=== PATIENT | male | born 1960 | race Caucasian/White ===

== ENCOUNTER 2017-02-07 15:22 | Inpatient (IN) | payer BC ==
[2017-02-07] MEDS ORDERED: Aspirin Low Dose CHEW TAB* 81 MG PO ONE (15:40)
[2017-02-07] MEDS ORDERED: Ondansetron INJ* 2 MG/ML VIAL IV ONE (16:02)
[2017-02-07] MEDS ORDERED: Metoprolol Tartrate IV* 1 MG/ML 5 ML VIAL IV ONE (16:02)
[2017-02-07] MEDS ORDERED: Morphine INJ* 4 MG/ML 1 ML SYRINGE IV ONE (16:02)
[2017-02-07] MEDS ORDERED: Iodixanol* (CONTRAST) 320 MG/ML 100 ML SDV IV ONE (16:33)
[2017-02-07 16:34] LABS: Hematocrit 45 % (42-52); Hemoglobin 15.3 g/dl (14.0-18.0); Mean Corpuscular HGB Conc 34 g/dl (31-36); Mean Corpuscular Hemoglobin 31 pg (27-31); Mean Corpuscular Volume 92 fL (80-94); Mean Platelet Volume 8 um3 (7.4-10.4); Red Blood Count 4.87 10^6/ul (4.0-5.4); Red Cell Distribution Width 13 % (10.5-15); White Blood Count 9.9 10^3/ul (3.5-10.8)
[2017-02-07 16:52] LABS: ALT 37 U/L (7-52); Albumin 4.7 g/dL (3.2-5.2); Alkaline Phosphatase 36 U/L (34-104); BUN/Creatinine Ratio 12.7 (8-20); Blood Urea Nitrogen 10 mg/dL (6-24); CO2 Carbon Dioxide 26 mmol/L (22-32); Calcium 9.3 mg/dL (8.6-10.3); Chloride 100 mmol/L (101-111); EGFR Non-African American 101.1 (>60); Globulin 2.9 g/dL (2-4); Glucose 113 mg/dL (70-100); Sodium 135 mmol/L (133-145); Total Protein 7.6 g/dL (6.4-8.9)
--- NOTE | 2017-02-07 17:03 | RAD ---
Indication: Low back pain, aneurysm and dissection. Contrast: Administered 100.0 ml of VISAPAQUE 320 mgi/ml CTA of the chest, abdomen and pelvis was performed after IV contrast administration. Coronal and sagittal reconstructed images were obtained. There is no evidence of aortic dissection with no evidence of intimal flap. No evidence of thoracic aortic aneurysm is noted. The abdominal aorta demonstrates no evidence of aneurysmal dilatation or aortic dissection. The common iliac artery and external iliac arteries demonstrates no evidence of dissection. There is no evidence of filling defect to suggest pulmonary embolus. There is no mediastinal or hilar adenopathy noted. Inferior thyroid lobes are grossly unremarkable. The trachea and major bronchi appear patent. The lung maguire demonstrate some atelectasis in the right middle lobe. No other focal lesions or alveolar consolidation is noted. The liver is normal in size. It is diffusely decreased in density consistent with hepatic steatosis. There is a focal hypervascular mass in the right lobe of liver measuring approximately 6 mm. This may represent a cyst or hemangioma. Correlation with MRI may be helpful if clinically warranted. No other focal lesions are identified. The gallbladder demonstrates no calcified gallstones. No pericholecystic fluid or wall thickening is noted. The spleen is normal in size. No adrenal lesions are noted. The kidneys demonstrate symmetric nephrograms without focal lesions. No retroperitoneal lymphadenopathy is noted. No dilated loops of bowel are noted. The colon is filled with stool. CT of the pelvis demonstrates distended urinary bladder. No hernias are noted. Prostate and seminal vesicles are unremarkable. The bony structures demonstrates multilevel degenerative disc disease of the lumbar spine. IMPRESSION: THERE IS NO EVIDENCE OF THORACIC AORTIC DISSECTION OR ABDOMINAL AORTIC DISSECTION. NO EVIDENCE OF ANEURYSM OF THE THORACIC OR ABDOMINAL AORTA IS NOTED. MULTILEVEL DEGENERATIVE DISC DISEASE OF THE LUMBAR SPINE IS NOTED. HYPERVASCULAR LESION IN THE RIGHT LOBE OF LIVER MEASURING 5 MM MAY REPRESENT A FLASH FILLING HEMANGIOMA. IF CLINICALLY WARRANTED FOLLOW-UP EXAM WITH MRI OR ULTRASOUND COULD BE PERFORMED. Findings discussed with Dr. Bello at 1700 hours.
--- NOTE | 2017-02-07 18:36 | RAD ---
Indication: Slurred speech, hypertension. CT of the brain was performed without IV contrast. Ventricular structures are midline. No midline shift is noted. The extra-axial spaces are unremarkable. There is no evidence of intracranial mass or hemorrhage. No other high or low density lesions are identified. Mastoid air cells and paranasal sinuses are grossly unremarkable. IMPRESSION: No intracranial mass or hemorrhage is noted.
[2017-02-07 19:01] LABS: Alcohol < 10 mg/dL (<10)
[2017-02-07] MEDS ORDERED: Acetaminophen TAB* 325 MG PO PRN (21:55)
[2017-02-07] MEDS ORDERED: Metoprolol Tartrate IV* 1 MG/ML 5 ML VIAL IV PRN (21:55)
[2017-02-07] MEDS: Heparin VIAL(*) 5000 UNITS/ML VIAL (FIVE THOUSAND) SUBCUT SCH (22:54)
[2017-02-08] MEDS ORDERED: Ondansetron INJ* 2 MG/ML VIAL ONE (00:26)
[2017-02-08] MEDS: Ondansetron INJ* 2 MG/ML VIAL IV PRN ×4 (00:30→16:45)
--- NOTE | 2017-02-08 00:59 | HP ---
HISTORY AND PHYSICAL: DATE OF ADMISSION: 02/07/17 PRIMARY CARE PHYSICIAN: Dr. Galen Concepcion. ATTENDING PHYSICIAN: Dr. Kash Echols* (dictated by Sophie Alexis NP). CHIEF COMPLAINT: High blood pressure, slow slurred speech and generally not feeling well. HISTORY OF PRESENT ILLNESS: Mr. Ruano is a 56-year-old male with past medical history significant for ulcerative colitis, hyperlipidemia and cyclic vomiting who presented to the emergency room today after generally not feeling well and at work checking his blood pressures and found that he was hypertensive with blood pressures systolically in the 180s and diastolic in the 100s. The patient states that he woke this morning with lower back pain. This is not uncommon for him. He regularly follows with a chiropractor. He reports moving a bunch of brush yesterday and feels that this may have contributed to his back discomfort. 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 The patient denies any fever, chills, chest pain, and shortness of breath. The patient denies any weakness, facial drooping, or confusion. According to the patient's , he had slightly slow and slurred speech. He presented to the emergency room for further evaluation of his symptoms. While in the emergency room, the patient received aspirin 324 mg. He also received IV morphine and Zofran. The patient received 5 mg one time dose of IV metoprolol, which improved his blood pressure from 190/110 to 136/86. The patient also underwent a head CT showing no intracranial mass or hemorrhage. The patient also had an abdomen, pelvis chest CTA showing no evidence for thoracic aortic dissection or abdominal aortic dissection. The patient was noted to have multilevel degenerative disk disease of his lumbar spine. The patient had an EKG showing sinus rhythm at a rate of 78, similar to previous EKG from 03/10/04. The patient had labs. They were fairly unremarkable. He had a troponin of 0.00. Hospitalists were asked to evaluate this patient for admission. PAST MEDICAL HISTORY: 1. Ulcerative colitis. 2. Hyperlipidemia. 3. Cyclic vomiting syndrome. PAST SURGICAL HISTORY: None. HOME MEDICATIONS: Include: 1. Balsalazide 1500 mg oral twice daily. 2. Amitriptyline 25 mg oral daily at bedtime. 3. Simvastatin 40 mg oral daily at bedtime. 4. Fish oil 1000 mg oral twice daily. 5. Co-Q10 200 mg oral daily. 6. Probiotic 1 tablet oral daily. ALLERGIES: No known drug allergies. FAMILY HISTORY: The patient's father passed at age 78 from heart disease. He also had a history of heart failure. The patient denies any family history of diabetes mellitus. The patient's mother had a history of breast cancer. The patient has a brother with a history of brain aneurysm. The patient has another brother who passed at age 70 from complications of a cerebrovascular accident. SOCIAL HISTORY: The patient denies tobacco use. He drinks 6 beers daily. The patient reports occasional marijuana use. The patient works at a local [employer]. He lives with his , Melissa Stephenson, who will be his surrogate decision maker in the event he is unable to make decisions for himself. REVIEW OF SYSTEMS: I performed a 14-point review of systems. All the pertinent positives and negatives are mentioned in the history of present illness. The remaining review of systems are negative. PHYSICAL EXAMINATION GENERAL APPEARANCE: The patient is alert, pleasant, appears to be in no acute distress. VITAL SIGNS: Temperature 99.2, heart rate 83, respiratory rate 15, O2 sat 96% on room air, blood pressure 137/90. HEENT: Normocephalic, atraumatic. Pupils are equal and reactive to light. Extraocular movements are intact. RESPIRATORY: There is no accessory muscle use and the lungs are clear to auscultation bilateral. CARDIOVASCULAR: Regular rate and rhythm. S1, S2 present. There are no murmurs , rubs, or gallops heard. ABDOMEN: Soft, nontender, nondistended. There are bowel sounds present x4. EXTREMITIES: There is no lower extremity edema. DP and PT pulses are 2+ and symmetric. MUSCULOSKELETAL: There is no clubbing or cyanosis noted. The patient exhibits good strength in all extremities. The patient's hand performance architect are equal. NEUROLOGIC: The patient is alert and oriented x4. Cranial nerves II through XII are grossly intact. The patient's face is symmetrical. Hand performance architect are equal. He is able to move all extremities. PSYCHOLOGICAL: The patient is calm and cooperative. SKIN: There are no rashes or abnormalities seen. DIAGNOSTIC STUDIES/LABORATORY DATA: Sodium 135, potassium 4.0, chloride 100, CO2 26, BUN 10, creatinine 0.79, glucose 113. White blood cell count 9.9, hemoglobin 15.3, hematocrit 45, platelet count 253, troponin 0.00. EKG shows sinus rhythm with a rate of 78. There are no acute signs of ischemia. This EKG is similar to previous EKG from 03/10/04. Head CT from today. Radiologist impression: No intracranial mass or hemorrhage. Chest, abdomen, pelvis CTA from today. Radiologist impression: There is no evidence of thoracic aortic dissection or abdominal aortic dissection. No evidence of aneurysm of the thoracic or abdominal aorta is noted. Multilevel degenerative disk disease of the lumbar spine is noted. Hypervascular lesion in the right lobe of the liver measuring 5 mm may represent a flash filling hemangioma. If clinically warranted, followup exam with MRI or ultrasound could be performed. IMPRESSION: Mr. Ruano is a 56-year-old male with past medical history significant for ulcerative colitis and hyperlipidemia who presents to the emergency room today with a hypertensive episode with associated slurred and slowed speech. He will be admitted as an observation for hypertensive urgency. ASSESSMENT: 1. Slow slurred speech. I suspect this is related to hypertensive urgency as the patient presented hypertensive with systolic blood pressure in the 190s. This resolved after he received a dose of IV metoprolol. We will monitor the patient on telemetry, get neuro checks and check fasting labs in the morning. Due to the patient's family history of brain aneurysm and cerebrovascular accident, we will get an head and neck CTA in the morning. 2. Hypertension. We will place the patient on as needed metoprolol overnight for systolic blood pressures greater than 180 or diastolic blood pressures greater than 110. We will start the patient on metoprolol 25 mg oral in the morning. 3. History of depression. The patient will be continued on his home amitriptyline. 4. Ulcerative colitis. The patient will be continued on his home balsalazide. 5. Hyperlipidemia. The patient will be continued on his statin. We will check fasting lipids in the morning and adjust accordingly. 6. Low back pain. We will use Tylenol, this is what the patient uses at home. 7. Fluids, electrolytes, nutrition. The patient will be on a heart healthy diet. 8. Code status. Full code. 9. DVT prophylaxis. The patient is at moderate risk, will be placed on subcu heparin. 10. Disposition. Observation. TIME SPENT: Time for this admission was 60 minutes, 35 minutes were spent with the patient discussing medications, past medical history and the events leading up to his arrival today and performing a physical examination. The case has been reviewed with the attending, Dr. Echols, who agrees with the plan of care. Reviewed by SOPHIE SHARMA, RAMON-C 02/11/17 1737 CC: Dr. Galen Concepcion* [id number]/[facility] #: [id number] OLMAN
[2017-02-08] MEDS ORDERED: Morphine INJ* 2 MG/ML 1 ML SYRINGE ONE (01:00)
[2017-02-08] MEDS ORDERED: Morphine INJ* 2 MG/ML 1 ML SYRINGE IV ONE (01:00)
[2017-02-08] MEDS ORDERED: LORazepam INJ* 2 MG/ML 1 ML VIAL ONE (01:22)
[2017-02-08] MEDS ORDERED: LORazepam INJ* 2 MG/ML 1 ML VIAL IV PUSH ONE (02:00)
[2017-02-08 05:29] LABS: HDL Cholesterol 49.6 mg/dL
[2017-02-08] MEDS: Heparin VIAL(*) 5000 UNITS/ML VIAL (FIVE THOUSAND) SUBCUT SCH ×3 (06:02→21:03)
[2017-02-08] MEDS ORDERED: PROCHLORPERAZINE INJ 5 MG/ML 2 ML VIAL ONE (06:31)
[2017-02-08] MEDS ORDERED: PROCHLORPERAZINE INJ 5 MG/ML 2 ML VIAL IV PRN (06:33)
[2017-02-08] MEDS ORDERED: Iohexol 350* (CONTRAST) 500 ML MDV IV ONE (07:24)
[2017-02-08] MEDS ORDERED: Metoprolol Tartrate TAB* 25 MG PO SCH (09:00)
[2017-02-08] MEDS: Balsalazide (NF) 750 MG CAP PO SCH ×2 (09:48→21:03)
[2017-02-08] MEDS ORDERED: LORazepam INJ* 2 MG/ML 1 ML VIAL IV PUSH PRN (10:02)
--- NOTE | 2017-02-08 10:08 | PN ---
Subjective Date of Service: 02/08/17 Interval History: Pt is feeling poorly. He states that overnight he had frequent retching/ vomiting. He has also had abdominal pain which is not uncommon for him when he gets into a vomiting cycle. Objective Active Medications: Acetaminophen (Tylenol Tab*) 650 mg PO Q4H PRN PRN Reason: PAIN Amitriptyline HCl (Elavil Tab*) 25 mg PO BEDTIME [facility] Amlodipine Besylate (Norvasc Tab*) 5 mg PO DAILY [facility] Atorvastatin Calcium (Lipitor*) 20 mg PO BEDTIME [facility] Balsalazide (Balsalazide (Nf)) 1,500 mg PO BID [facility] Last Admin: 02/08/17 09:48 Dose: Not Given Heparin Sodium (Porcine) (Heparin Vial(*)) 5,000 units SUBCUT Q8HR [facility] Last Admin: 02/08/17 06:02 Dose: Not Given Metoprolol Tartrate (Lopressor Iv*) 5 mg IV Q6H PRN PRN Reason: BLOOD PRESSURE Last Admin: 02/08/17 06:05 Dose: 5 mg Ondansetron HCl (Zofran Inj*) 4 mg IV Q4H PRN PRN Reason: NAUSEA/VOMITING Last Admin: 02/08/17 08:32 Dose: 4 mg Prochlorperazine Edisylate (Compazine Inj*) 10 mg IV Q6H PRN PRN Reason: NAUSEA/VOMITING Last Admin: 02/08/17 06:34 Dose: 10 mg Vital Signs 02/07/17 02/07/17 02/07/17 21:30 21:46 22:00 Pulse Rate 90 87 Respiratory 16 11 15 Rate Blood Pressure 152/99 149/84 (mmHg) O2 Sat by Pulse 96 96 Oximetry 02/07/17 02/07/17 02/07/17 22:25 22:30 22:39 Pulse Rate 87 86 89 Respiratory 13 13 13 Rate Blood Pressure 153/90 (mmHg) O2 Sat by Pulse 97 96 96 Oximetry 02/07/17 02/07/17 02/07/17 22:48 23:00 23:30 Pulse Rate 83 85 Respiratory 12 19 Rate Blood Pressure 161/96 (mmHg) O2 Sat by Pulse 94 94 Oximetry 02/08/17 02/08/17 02/08/17 00:00 00:29 01:00 Pulse Rate 84 87 91 Respiratory 14 16 29 Rate Blood Pressure 154/98 (mmHg) O2 Sat by Pulse 95 93 99 Oximetry 02/08/17 02/08/17 02/08/17 01:02 01:04 01:25 Pulse Rate Respiratory 21 17 17 Rate Blood Pressure (mmHg) O2 Sat by Pulse Oximetry 02/08/17 02/08/17 02/08/17 01:30 02:00 02:30 Pulse Rate 84 79 77 Respiratory 17 15 14 Rate Blood Pressure (mmHg) O2 Sat by Pulse 96 95 94 Oximetry 02/08/17 02/08/17 02/08/17 03:00 03:30 04:00 Pulse Rate 83 88 88 Respiratory 12 14 21 Rate Blood Pressure 166/91 (mmHg) O2 Sat by Pulse 96 95 92 Oximetry 02/08/17 02/08/17 02/08/17 04:30 05:00 05:30 Pulse Rate 95 93 94 Respiratory 14 12 20 Rate Blood Pressure 160/102 (mmHg) O2 Sat by Pulse 95 95 91 Oximetry 02/08/17 02/08/17 02/08/17 06:00 06:03 06:30 Pulse Rate 97 97 94 Respiratory 11 14 18 Rate Blood Pressure 178/103 (mmHg) O2 Sat by Pulse 96 97 93 Oximetry 02/08/17 02/08/17 02/08/17 06:36 07:00 07:30 Pulse Rate 90 97 95 Respiratory 17 16 22 Rate Blood Pressure 161/96 168/100 (mmHg) O2 Sat by Pulse 95 93 93 Oximetry 02/08/17 08:00 Pulse Rate 94 Respiratory 22 Rate Blood Pressure (mmHg) O2 Sat by Pulse 95 Oximetry Oxygen Devices in Use Now: None Appearance: Middle aged male sitting on the edge of the bed, vomiting, NAD Eyes: No Scleral Icterus Ears/Nose/Mouth/Throat: Mucous Membranes Moist Respiratory: Symmetrical Chest Expansion and Respiratory Effort, Clear to Auscultation Cardiovascular: NL Sounds; No Murmurs; No JVD, RRR, No Edema Abdominal: NL Sounds; No Tenderness; No Distention Extremities: No Clubbing, Cyanosis Skin: No Rash or Ulcers, No Nodules or Sclerosis Neurological: Alert and Oriented x 3 Result Diagrams: 02/07/17 16:25 02/07/17 18:53 Microbiology and Other Data: Microbiology 02/07/17 23:22 Nasal Screen MRSA (PCR)([facility]) - Final Nasal Mrsa Negative Assess/Plan/Problems-Billing Mr Ruano is a 56 yo M with a h/o UC, cyclical vomiting syndrome and HLD who presented to the ER with c/o feeling unwell and elevated BP. While in the ER his also noted that his speech was slurred and slowed. - Patient Problems (1) Hypertensive emergency Current Visit: Yes Status: Acute Code(s): I16.1 - HYPERTENSIVE EMERGENCY SNOMED Code(s): 999015840655605 Comment: The patient presented to the ER with c/o marked hypertension. He states elevated BP has not been an issue previously. His BP is currently moderately elevated. Will start amlodipine 5mg daily instead of metoprolol for now. He reportedly had slurred speech with the markedly elevated BP. Now resolved. He is getting worked up for possible TIA with CTA head and neck and will get echo. Continue ASA 81mg daily. Cholesterol is not at goal. Will increase the lipitor to 40mg daily. (2) Cyclical vomiting syndrome Current Visit: Yes Status: Acute Comment: The patient did not present to the ER vomiting though it has developed since. He states he is about 50/50 breaking the cycle with zofran ODT and oral ativan at home. Will continue prn zofran, compazine and add tigan IM and ativan. Will not d/c pt home until his vomiting is under better control. (3) HLD (hyperlipidemia) Current Visit: Yes Status: Acute Code(s): E78.5 - HYPERLIPIDEMIA, UNSPECIFIED SNOMED Code(s): 49526324 Comment: Continue lipitor. (4) Ulcerative colitis Current Visit: Yes Status: Acute Code(s): K51.90 - ULCERATIVE COLITIS, UNSPECIFIED, WITHOUT COMPLICATIONS SNOMED Code(s): 88121549 Comment: Pt takes balsalazide at home. It is non-formulary here. (5) DVT prophylaxis Current Visit: Yes Status: Acute Code(s): WMP7632 - SNOMED Code(s): 406572906 (6) Full code status Current Visit: Yes Status: Acute Code(s): Z78.9 - OTHER SPECIFIED HEALTH STATUS SNOMED Code(s): 288044306
[2017-02-08] MEDS ORDERED: Aspirin Low Dose CHEW TAB* 81 MG PO SCH (11:00)
[2017-02-08] MEDS: amLODIPine TAB* 5 MG PO SCH (11:02)
--- NOTE | 2017-02-08 15:37 | RAD ---
INDICATION: Slurred speech. COMPARISON: CT brain February 07, 2017; CTA chest/abdomen/pelvis February 07, 2017 TECHNIQUE: Axial source images were acquired with coronal and sagittal reconstructions. CT angiographic technique was utilized with injection of 80 mL Omnipaque 350. FINDINGS: Aortic arch: There are no CT angiogram abnormalities of the arch or the great vessels arising from the arch. Right carotid: The internal carotid artery, carotid bifurcation, extracranial portions of the internal carotid artery, carotid artery at the skull base, carotid siphon, and carotid termination appear widely patent. Left carotid:The internal carotid artery, carotid bifurcation, extracranial portions of the internal carotid artery, carotid artery at the skull base, carotid siphon, and carotid termination appear widely patent. Right middle and anterior cerebral arteries: There are no CT angiographic abnormalities of the middle or anterior cerebral arteries. Left middle and anterior cerebral arteries: There are no CT angiographic abnormalities of the middle or anterior cerebral arteries Right vertebral: The CT angiographic appearance of the vertebral artery is normal. Left vertebral: The CT angiographic appearance of the vertebral artery is normal. Basilar artery: The basilar artery and basilar tip appear normal. Posterior cerebral arteries: The distal distribution of the right and left posterior cerebral arteries is normal. [place] of [place]: The CT angiographic appearance of the [place] is normal. Source images show no evidence of mass or adenopathy within the neck. There are no focal parenchymal abnormalities or abnormal areas of enhancement. IMPRESSION: NO SIGNIFICANT CT ANGIOGRAPHY ABNORMALITIES CPT II Codes: 3[address]F [facility]
[2017-02-08] MEDS: NS 0.9% 1000 ML* 1,000 ML IV SCH (16:45)
[2017-02-08] MEDS ORDERED: Amitriptyline TAB* 25 MG PO SCH (21:00)
[2017-02-08] MEDS ORDERED: Atorvastatin* 20 MG TAB PO SCH (21:00)
[2017-02-08] MEDS ORDERED: Atorvastatin* 40 MG TAB PO SCH (21:00)
[2017-02-09] MEDS: Ondansetron INJ* 2 MG/ML VIAL IV PRN (00:12)
[2017-02-09] MEDS: NS 0.9% 1000 ML* 1,000 ML IV SCH ×2 (00:15→07:27)
[2017-02-09] MEDS: Heparin VIAL(*) 5000 UNITS/ML VIAL (FIVE THOUSAND) SUBCUT SCH ×2 (05:14→13:45)
[2017-02-09] MEDS: amLODIPine TAB* 5 MG PO SCH (08:18)
[2017-02-09] MEDS: Balsalazide (NF) 750 MG CAP PO SCH (08:18)
--- NOTE | 2017-02-09 12:45 | ECHO ---
Patient: KEN WOMACK [facility] Rec#: [id number] : 1960 Date: 02/09/2017 Age: 56y Height: 177.8 cm / 70.0 in Weight: 103 kg / 227.0 lbs Sex: M BSA: 2.2 Room#: 434 Admit Date#: 02/07/2017 Type: Inpatient Referring: Sofia Dukes DO Reading: Modesta Funes MD Air Valve Repairer: Caprice Granado RN RDCS CC: Galen Concepcion MD Transthoracic Echocardiogram Indication: HTN emergency BP: 111/68 HR: 92 Rhythm: NSR Findings History: HLD, ulcerative colitis, ETOH use Technical Comments: The study is technically limited due to patient body habitus. Completed at 1100. Left Ventricle: The left ventricular chamber size is normal. Mild concentric left ventricular hypertrophy is observed. Global left ventricular wall motion and contractility are within normal limits. There is normal left ventricular systolic function. The estimated ejection fraction is 55-60%. There is no consistent Doppler evidence of clinically significant diastolic dysfunction. Left Atrium: The left atrial chamber size is normal. Right Ventricle: The right ventricular cavity size is normal. The right ventricular global systolic function is normal. Right Atrium: The right atrial cavity size is normal. Aortic Valve: The aortic valve is trileaflet. The aortic valve leaflets are mildly thickened. There is no evidence of aortic regurgitation. There is no evidence of aortic stenosis. Mitral Valve: The mitral valve leaflets are mildly thickened. There is trace to mild mitral regurgitation. There is no evidence of mitral stenosis. Tricuspid Valve: The tricuspid valve leaflets are normal. There is trace to mild tricuspid regurgitation. Unable to estimate the right ventricular systolic pressure. Pulmonic Valve: The pulmonic valve structure is not well visualized. There is trace to mild pulmonic regurgitation. There is no pulmonic stenosis. Pericardium: There is no significant pericardial effusion. A pericardial fat pad is visualized. Aorta: There is mild dilatation of the ascending aorta. There is no dilatation of the aortic arch. There is no dilation of the aortic root. Pulmonary Artery: The main pulmonary artery is not well visualized. Venous: The inferior vena cava appears normal in size. There is a greater than 50% respiratory change in the inferior vena cava dimension. Summary: There was not any prior study for comparison. Conclusions The left ventricular chamber size is normal. Mild concentric left ventricular hypertrophy is observed. The estimated ejection fraction is 55-60%. There is trace to mild mitral regurgitation. There is trace to mild tricuspid regurgitation. There is trace to mild pulmonic regurgitation. There is mild dilatation of the ascending aorta. Measurements Name Value Normal Range RVDdMajor (2D) 3.6 cm (2.2 - 4.4) RAd ISD 4CH 4.7 cm (3.4 - 4.9) RA (A4C)W 4.1 cm (2.9 - 4.6) IVSd (2D) 1.2 cm (0.6 - 1) LVPWd (2D) 1.2 cm (0.6 - 1) LVIDd (2D) 5.3 cm (3.6 - 5.4) LVIDs (2D) 3.8 cm - LV FS (2D) 27 % (25 - 45) Aortic Annulus 2.5 cm (1.4 - 2.6) Ao root diameter (2D) 3.3 cm (2.1 - 3.5) Ascending Ao 3.5 cm (2.1 - 3.4) Aortic arch 2.9 cm (1.8 - 3.4) LA dimension (AP) 2D 3.3 cm (2.3 - 3.8) LAd ISD 4CH 4.9 cm (2.9 - 5.3) LA ISD 4CH W 4.5 cm (2.5 - 4.5) Name Value Normal Range LA ESV SP 4CH (A/L) 63 ml - LA ESV SP 2CH (A/L) 65 ml - LA ESV BP (A/L) 65 ml - LA ESV BP (A/L) index 30 ml/m2 - LA ESV SP 4CH (MOD) 55 ml - LA ESV SP 2CH (MOD) 63 ml - Name Value Normal Range MV E-wave Vmax 0.71 m/sec - MV deceleration time 223 msec - MV A-wave Vmax 0.71 m/sec - MV E:A ratio 1 ratio - LV septal e' Vmax 0.08 m/sec - LV lateral e' Vmax 0.1 m/sec - LV E:e' septal ratio 8.9 ratio - LV E:e' lateral ratio 7.1 ratio - Name Value Normal Range AV Vmax 1.4 m/sec - AV VTI 31.1 cm - AV peak gradient 7 mmHg - AV mean gradient 5 mmHg - LVOT Vmax 1.1 m/sec - LVOT VTI 22 cm - LVOT peak gradient 5 mmHg - LVOT mean gradient 3 mmHg - NILTON Vmax 0.69 m/sec - Name Value Normal Range IVC diameter 1.9 cm - Name Value Normal Range PV Vmax 0.91 m/sec -
[2017-02-09 12:51] VITALS: BP 124/83
--- NOTE | 2017-02-10 07:02 | ED ---
janie Betancur Timothy, scribed for Ramsey Bello MD on 02/07/17 at 1559 . Abdominal Pain/Male - HPI Summary HPI Summary: Manpreet Ruano is a 56 yo male presenting to [facility] with 3/10 lower back pain and elevated blood pressure with nausea. 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 He denies any vomiting, dizziness, or lightheadedness, as well as any extremity weakness. He states he woke up with the low back pain. Per triage there was no slured speech or facial droop. he states thathe is experiencing a flare up of his colitis in the form of urgency, but denies bloody stool. he denies any tingling or numbness, as well as incontinence. He denies any CP, but notes some SOB. His is present in room and notes thathis speech is slightly slurred. His MHx includes HLD, cyclic vomiting syndrome, IBS, colitis. Dr. Concepcion is his PCP, Dr. Sosa is his trim installer. - History of Current Complaint Chief Complaint: EDHypertension Stated Complaint: SWEATY Time Seen by Provider: 02/07/17 15:54 Hx Obtained From: Patient Onset/Duration: Gradual Onset, Lasting Hours, Still Present Timing: Constant Severity Initially: Moderate Severity Currently: Moderate Pain Intensity: 3 Pain Scale Used: 0-10 Numeric Location: Diffuse Radiates to: Back Associated Signs And Symptoms: Positive: Back Pain. Negative: Blood in Stool, Vomiting, Diarrhea - Allergies/Home Medications Allergies/Adverse Reactions: Allergies Allergy/AdvReac Type Severity Reaction Status Date / Time No Known Allergies Allergy Verified 03/26/16 23:47 Home Medications: Home Medications [place]-3 Fatty Acids (Nf) [Fish Oil (NF)] 1,000 mg PO BID 02/07/17 [History Confirmed 02/07/17] Simvastatin (NF) [Zocor (NF)] 40 mg PO DAILY 02/07/17 [History Confirmed ] PMH/Surg Hx/FS Hx/Imm Hx Infectious Disease History: Denies: Traveled Outside the [place] in Last 30 Days - Family History Known Family History: Positive: Cardiac Disease, Hypertension, Other - brain aneurysm Negative: Diabetes - Social History Alcohol Use: Daily Alcohol Amount: 2-3 drinks/day Substance Use Type: Reports: None Smoking Status (MU): Never Smoked Tobacco Review of Systems Constitutional: Negative Negative: Fever, Chills Eyes: Negative Negative: Erythema ENT: Negative Negative: Sore Throat Cardiovascular: Negative Negative: Palpitations, Chest Pain Positive: Shortness Of Breath. Negative: Cough Positive: Abdominal Pain, Nausea, Other - rectal urgency from colitis. Negative : Vomiting Genitourinary: Negative Negative: dysuria, hematuria Musculoskeletal: Negative Negative: Edema - legs Skin: Negative Negative: Rash Positive: Slurred Speech Psychological: Normal All Other Systems Reviewed And Are Negative: Yes Physical Exam - Summary Physical Exam Summary: Constitutional: Well-developed, Well-nourished, Alert. (-) Distressed Skin: Warm, Dry HENT: Normocephalic; Atraumatic Eyes: Conjunctiva normal Neck: Musculoskeletal ROM normal neck. (-) JVD, (-) Stridor, (-) Tracheal deviation Cardio: Rhythm regular, rate normal, Heart sounds normal; Intact distal pulses; The pedal pulses are 2+ and symmetric. Radial pulses are 2+ and symmetric. (-) Murmur Pulmonary/Chest wall: Effort normal. (-) Respiratory distress, (-) Wheezes, (-) Rales Abd: Soft, (-) Tenderness, (-) Distension, (-) Guarding, (-) Rebound Musculoskeletal: (-) Edema Lymph: (-) Cervical adenopathy Neuro: Alert, Oriented x3 Psych: Mood and affect Normal Triage Information Reviewed: Yes Vital Signs On Initial Exam: Initial Vitals Temp Pulse Resp BP Pulse Ox 98.1 F 96 18 190/110 99 02/07/17 15:23 02/07/17 15:23 02/07/17 15:23 02/07/17 15:23 02/07/17 15:23 Vital Signs Reviewed: Yes Diagnostics - Vital Signs Vital Signs Temp Pulse Resp BP Pulse Ox 02/07/17 15:23 98.1 F 96 18 190/110 99 - Laboratory Result Diagrams: 02/07/17 16:25 02/07/17 16:25 Lab Statement: Any lab studies that have been ordered have been reviewed, and results considered in the medical decision making process. - CT Chest/A?P CTA CT Interpretation: No Acute Changes - THERE IS NO EVIDENCE OF THORACIC AORTIC DISSECTION OR ABDOMINAL AORTIC DISSECTION. NO EVIDENCE OF ANEURYSM OF THE THORACIC OR ABDOMINAL AORTA IS NOTED. MULTILEVEL DEGENERATIVE DISC DISEASE OF THE LUMBAR SPINE IS NOTED. HYPERVASCULAR LESION IN THE RIGHT LOBE OF LIVER MEASURING 5 MM MAY REPRESENT A FLASH FILLING HEMANGIOMA. IF CLINICALLY WARRANTED FOLLOW-UP EXAM WITH MRI OR ULTRASOUND COULD BE PERFORMED. CT Interpretation Completed By: Radiologist Brain CT Interpretation: No Acute Changes - IMPRESSION: No intracranial mass or hemorrhage is noted. CT Interpretation Completed By: Radiologist - EKG 1720 Cardiac Rate: NL - 78 BPM EKG Interpretation: NSR @ 78 BPM, no STEMI. Abdominal Pain Fem Course/Dx - Course Assessment/Plan: Darrell Ruano is a 56 yo male presenting to [facility] with 3/10 lower back pain, radiaitng from his abd, with nausea and some slurred speech. In the ED he received ASA, lopressor, morphine, zofran. His Chest/A/P CTA suggests: THERE IS NO EVIDENCE OF THORACIC AORTIC DISSECTION OR ABDOMINAL AORTIC DISSECTION. NO EVIDENCE OF ANEURYSM OF THE THORACIC OR ABDOMINAL AORTA IS NOTED. MULTILEVEL DEGENERATIVE DISC DISEASE OF THE LUMBAR SPINE IS NOTED. HYPERVASCULAR LESION IN THE RIGHT LOBE OF LIVER MEASURING 5 MM MAY REPRESENT A FLASH FILLING HEMANGIOMA. IF CLINICALLY WARRANTED FOLLOW-UP EXAM WITH MRI OR ULTRASOUND COULD BE. PERFORMED. His Brain CT suggests no intracranial mass or hemorrhage. After clinical examination and review of his lab and imaging studies, as well as discussion with Dr. Cardona and Dr. Dukes, he corey be admitted to [facility] with hypertensive emergency, dysarthria, and low back pain. - Diagnoses Differential Diagnosis/HQI/PQRI: Abdominal Aortic Aneurysm, Other - dissection Provider Diagnoses: Hypertensive emergency, Dysarthria, Low back pain - Provider Notifications Discussed Care Of Patient With: 1658 - Dr. Cardona (radiology) - no aortic aneurysm or dissection suggested in chest/A/P CTA. 1751 - Dr. Dukes ( hospitalist) - discussed Pt condition, is aware of Pt, and will admit Pt. Discharge - Discharge Plan Condition: Stable Disposition: ADMITTED TO [facility] Discharge Disposition Comment: admission for hypertensive emergency, dysarthria , low back pain Referrals: Galen Concepcion MD [Primary Care Provider] - The documentation as recorded by the janie ross Timothy accurately reflects the service I personally performed and the decisions made by me, Ramsey Bello MD.
--- NOTE | 2017-02-10 08:57 | DS ---
DISCHARGE SUMMARY: DATE OF ADMISSION: 02/07/17 DATE OF DISCHARGE: 02/08/17 PRIMARY CARE PROVIDER: Dr. Concepcion. PRINCIPAL DIAGNOSES: 1. Hypertensive emergency with resultant slurred speech - resolved. 2. Cyclical vomiting. DISCHARGE MEDICATIONS: 1. Balsalazide 1500 mcg p.o. b.i.d. 2. Amitriptyline 25 mg p.o. q.h.s. 3. Simvastatin 40 mg p.o. q.h.s. 4. [place]-3 fatty acid 1000 mg p.o. b.i.d. 5. Amlodipine 5 mg p.o. daily (new). HOSPITAL COURSE: Mr. Ruano is a 56-year-old male with a history of cyclical vomiting syndrome and ulcerative colitis who presented to the emergency room with complaints of high blood pressure and slurred speech. The patient stated that on the day of admission, he had been generally feeling unwell. He noted that his blood pressure had been high all day long. 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 In the ER, the patient's noted that his speech was slurred; however, after he received a blood pressure medication and within 10 minutes of his blood pressure returning back to a normal range, his slurred speech resolved. The patient was admitted for evaluation of the slurred speech and treatment of his hypertensive emergency. The patient, however, on the night of admission began to have significant vomiting. He does carry a history of cyclical vomiting. I believe that he got into a stretch of frequent vomiting. He was started on numerous antiemetics and attempts were made to have him take oral medications and food; this was unsuccessful. The patient was started on IV fluids and given a cocktail of Zofran and Ativan, which helped him sleep. The patient ultimately recovered from the vomiting and was feeling much better on the day of discharge. In terms of the slurred speech and hypertensive emergency, he did undergo a CTA of the head and neck which revealed no significant CT angiography abnormalities. He also underwent transthoracic echocardiogram which revealed EF of 55 to 60%. No evidence of diastolic dysfunction. Global left ventricular wall motion contractility were within normal limits. There was mild left ventricular hypertrophy noted. The patient was started on amlodipine and, with this, his blood pressure was quite good, in the one teens to 120s/80 range. At this point, the patient is felt to be stable for discharge home. On the day of discharge, the patient was sitting in bed awake, alert, and oriented, appearing quite well. His cardiac exam revealed a normal S1, S2 with a regular rate and rhythm. No murmurs were identified. The patient had no lower extremity edema. The patient's pulmonary exam reveals clear lungs bilaterally. His abdomen was soft, nontender and nondistended, and was nontender to palpation. The patient has no evidence of slurred speech, and no other focal neurologic deficits. FOLLOWUP CONCERNS: The patient is being discharged home today, 02/09/17. He is to follow up with Dr. Concepcion on 02/17/17 at 8:10 a.m. ACTIVITY: Activity level is as tolerated. DIET: Low fat. CONDITION ON DISCHARGE: Stable. TIME SPENT: Thirty-five minutes were spent discharging this patient. CC: Dr. Concepcion.* [id number]/CPS #: [id number] OLMAN
== END 2017-02-09 15:01 | disposition home or self-care (01) | DRG 199 ==
LOC: ED 15:22 → ICU 21:06 → MEDTELE 02-08 11:54 → OBSVTOIN 02-08 15:33
PROVIDERS: ADMIT Hospitalist; ATTEND Hospitalist
DX: I16.1 Hypertensive emergency (principal); K51.90 Ulcerative colitis, unspecified, without complications; G43.A0 Cyclical vomiting, in migraine, not intractable; M54.5 Low back pain; E78.5 Hyperlipidemia, unspecified; K58.9 Irritable bowel syndrome, unspecified; M51.36 Other intervertebral disc degeneration, lumbar region; I10 Essential (primary) hypertension; Z82.49 Family history of ischemic heart disease and other diseases of the circulatory system; Z80.3 Family history of malignant neoplasm of breast; Z82.3 Family history of stroke
CPT/HCPCS: 36415; 70450; 70496; 70498; 71275; 74174; 80053; 80061; 80320; 83605; 84484; 85025; 85379; 87641; 93005; 93306; A9270-GY; G0378; G0480; J0780; J1644; J2060; J2270; J2405; Q9967

== ENCOUNTER 2017-03-12 07:20 | Emergency (ER) | payer BC ==
[2017-03-12 07:36] VITALS: BP 121/69
--- NOTE | 2017-03-12 08:04 | UC ---
Skin Complaint HPI - HPI Summary HPI Summary: skin lesion on the left groin area + redness, swollen , tender, no fever, no chills, no dysuria - History of Current Complaint Chief Complaint: UCSkin Time Seen by Provider: 03/12/17 07:57 Stated Complaint: SKIN COMPLAINT Hx Obtained From: Patient Onset/Duration: Gradual Onset, Lasting Days - 3, Still Present Timing: Constant Onset Severity: Moderate Current Severity: Moderate Location: Other - left side of the groin Character: Pain, Redness, Raised, Painful Aggravating: Touch Alleviating: Nothing Associated Signs & Symptoms: Positive: Rash, Tenderness. Negative: Vomiting, Numbness, Fever, Chills - Allergy/Home Medications Allergies/Adverse Reactions: Allergies Allergy/AdvReac Type Severity Reaction Status Date / Time No Known Allergies Allergy Verified 02/07/17 20:10 Home Medications: Home Medications Amlodipine Besylate-Benazepril [Lotrel 5-10 mg] 03/12/17 [History] Aspirin [Aspirin 81 MG TAB] 03/12/17 [History] Coenzyme Q10 (Ubidecarenone) [Co Q-10] 03/12/17 [History] Levocarnitine l-Tartrate [l-Carnitine] 03/12/17 [History] Melatonin 03/12/17 [History] Review of Systems Constitutional: Negative Skin: Rash Eyes: Negative ENT: Negative Respiratory: Negative Cardiovascular: Negative All Other Systems Reviewed And Are Negative: Yes PMH/Surg Hx/FS Hx/Imm Hx Previously Healthy: Yes - Surgical History Surgical History: None - Family History Known Family History: Positive: Cardiac Disease, Hypertension, Other - brain aneurysm Negative: Diabetes - Social History Alcohol Use: Rare Alcohol Amount: 2-3 drinks/day Substance Use Type: None Smoking Status (MU): Never Smoked Tobacco - Immunization History Most Recent Influenza Vaccination: 2016 Most Recent Pneumonia Vaccination: unknown Physical Exam Triage Information Reviewed: Yes Appearance: Well-Appearing, No Pain Distress, Well-Nourished Vital Signs: Initial Vital Signs Temp 98.6 F 03/12/17 07:28 Pulse 95 03/12/17 07:28 Resp 16 03/12/17 07:28 BP 121/69 03/12/17 07:28 Pulse Ox 100 03/12/17 07:28 Vital Signs Reviewed: Yes Eyes: Positive: Conjunctiva Clear ENT: Positive: Normal ENT inspection, Hearing grossly normal, Pharynx normal Neck exam: Normal Respiratory: Positive: Chest non-tender, Lungs clear, Normal breath sounds Cardiovascular: Positive: RRR, No Murmur, Pulses Normal Skin: Positive: rashes - + abscess left side of groin , + erythema, tender to touch Course/Dx - Diagnoses Provider Diagnoses: abscess groin Discharge - Discharge Plan Condition: Stable Disposition: HOME Prescriptions: Cephalexin CAP* [Keflex CAP*] 500 mg PO TID #30 cap Patient Education Materials: Abscess (ED) Referrals: Galen Concepcion MD [Primary Care Provider] - 5 Days
== END 2017-03-12 08:11 | disposition home or self-care (01) ==
LOC: UCEAST 07:20
DX: L02.214 Cutaneous abscess of groin (principal)
CPT/HCPCS: 99212; G0463

== ENCOUNTER 2017-03-16 12:11 | Inpatient (IN) | payer BC ==
[2017-03-16] MEDS ORDERED: NS 0.9% 1000 ML* 1,000 ML IV ONE (15:04)
[2017-03-16] MEDS ORDERED: Clindamycin 600 MG IVPREMIX(* 600 MG/50 ML SDV IV ONE (15:04)
[2017-03-16 15:23] LABS: Urine Bacteria Absent (Absent); Urine Bilirubin Negative (Negative); Urine Glucose Negative (Negative); Urine Nitrite Negative (Negative)
[2017-03-16 15:58] LABS: Hematocrit 39 % (42-52); Mean Corpuscular HGB Conc 33 g/dl (31-36); Mean Corpuscular Hemoglobin 30 pg (27-31); Mean Corpuscular Volume 91 fL (80-94); Mean Platelet Volume 8 um3 (7.4-10.4); Red Blood Count 4.29 10^6/ul (4.0-5.4); Red Cell Distribution Width 14 % (10.5-15); White Blood Count 8.7 10^3/ul (3.5-10.8)
--- NOTE | 2017-03-16 16:07 | RAD ---
Indication: Scrotal swelling and erythema superior to the LEFT testicle. On antibiotics. Comparison: February 07, 2017 CT. Technique: Ultrasound of the LEFT inguinal region and superior aspect of the scrotum corresponding with the region of clinical concern. Report: Soft tissue edema and hyperemia. No loculated superficial soft tissue plane abscess collection evident. No routine testicular ultrasound images obtained. IMPRESSION: The constellation of findings is consistent with cellulitis. No loculated abscess collection evident.
[2017-03-16 16:12] LABS: Albumin 3.9 g/dL (3.2-5.2); BUN/Creatinine Ratio 14.1 (8-20); C Reactive Protein 85.58 mg/L (< 5.00); EGFR African American 147.1 (>60); EGFR Non-African American 114.4 (>60); Globulin 3.2 g/dL (2-4); Potassium 3.9 mmol/L (3.5-5.0); Total Bilirubin 0.4 mg/dL (0.2-1.0); Total Protein 7.1 g/dL (6.4-8.9)
[2017-03-16] MEDS ORDERED: Ondansetron INJ* 2 MG/ML VIAL IV PRN (17:55)
[2017-03-16] MEDS ORDERED: Acetaminophen TAB* 325 MG PO PRN (17:55)
--- NOTE | 2017-03-16 18:28 | RAD ---
Indication: Scrotal pain, swelling and cellulitis. CT of the abdomen and pelvis was performed without oral or IV contrast administration. Coronal and sagittal reconstructed images were obtained. Lung bases demonstrate no pleural fluid, nodules or masses. Heart is of normal size without evidence of pericardial effusion. The liver is normal in size. No focal lesions or intrahepatic ductal dilatation is noted. The gallbladder demonstrates no calcified gallstones. No pericholecystic fluid or wall thickening is noted. The pancreas demonstrates no mass or pancreatic duct dilatation. The spleen is normal in size. There is a small nodule in the omentum anterior to the spleen measuring 6 mm which may represent accessory splenule. No adrenal lesions are noted. The kidneys no hydronephrosis in either kidney. Nonobstructing calculi upper pole right kidney. No retroperitoneal lymphadenopathy is noted. CT of the pelvis demonstrates no retroperitoneal or pelvic lymphadenopathy. Diverticulosis without definite evidence of diverticulitis is noted. No hernias are noted. The urinary bladder is unremarkable. There is focal skin thickening of the scrotum. No evidence of extension into the perineum is noted. No evidence of abnormal edema is noted in the perineum. IMPRESSION: Nonobstructing calculi right kidney. Diverticulosis without definite evidence of diverticulitis. Scrotal skin thickening consistent with scrotal cellulitis. No evidence of perineal cellulitis is noted.
--- NOTE | 2017-03-16 18:31 | ED ---
Diane Betancur Edward, scribed for Gustavo Harper MD on 03/16/17 at 1454 . Skin Complaint - HPI Summary HPI Summary: 56 y/o male presents to ED with penile abscess and swelling in the scrotum. Patient was treated for the penile abscess at [facility] on 03/12/17. After five days on Cephalexin, the abscess did not improve and the patient developed scrotum swelling. Pain is characterized as a mild, dull ache. Pain was initially alleviated with a warm compress, but after developing the scrotal swelling the patient was advised to stop. Denies fevers/chills and pain in testicles. PMHx TIA and chronic vomiting. No known allergies. - History of Current Complaint Chief Complaint: EDGeneral Time Seen by Provider: 03/16/17 14:43 Stated Complaint: PENIS ABCESS/SWOLLEN SCROTUM Hx Obtained From: Patient Onset/Duration: Started Days Ago Skin Exposure Onset/Duration: Days Ago - Five days ago Timing: Constant Onset Severity: Mild Current Severity: Mild Pain Intensity: 2 Pain Scale Used: 0-10 Numeric Skin Location: Other: - Penile abscess Character: Swelling - Scrotum Swelling, Pain - Mildly painful - dull ache Alleviating Symptom(s): Other: - Warm compress Associated Signs & Symptoms: Negative - No fevers/chills. No pain in testicles - Additional Pertinent History Primary Care Physician: [id number] - Allergy/Home Medications Allergies/Adverse Reactions: Allergies Allergy/AdvReac Type Severity Reaction Status Date / Time No Known Allergies Allergy Verified 03/16/17 13:26 PMH/Surg Hx/FS Hx/Imm Hx Previously Healthy: No Endocrine/Hematology History: Denies: Hx Diabetes, Hx Thyroid Disease Cardiovascular History: Reports: Hx Hypertension Respiratory History: Denies: Hx Asthma GI History: Denies: Hx Ulcer History: Denies: Hx Renal Disease Sensory History: Reports: Hx Contacts or Glasses Denies: Hx Hearing Aid Opthamlomology History: Reports: Hx Contacts or Glasses Infectious Disease History: No Infectious Disease History: Denies: Hx Clostridium Difficile, Hx Hepatitis, Hx Human Immunodeficiency Virus (HIV), Hx of Known/Suspected MRSA, Hx Shingles, Hx Tuberculosis, Hx Known/ Suspected VRE, Hx Known/Suspected VRSA, History Other Infectious Disease, Traveled Outside the [place] in Last 30 Days - Family History Known Family History: Positive: Cardiac Disease, Hypertension, Other - brain aneurysm Negative: Diabetes - Social History Occupation: Employed Full-time Lives: With Family Alcohol Use: None Alcohol Amount: no alcohol for 1 month since TIA Substance Use Type: Reports: None Smoking Status (MU): Never Smoked Tobacco Review of Systems Constitutional: Negative Negative: Fever, Chills Eyes: Negative ENT: Negative Cardiovascular: Negative Respiratory: Negative Gastrointestinal: Negative Positive: pain, other - Penile abscess. Scrotum swelling Musculoskeletal: Negative Skin: Other - Penile abscess - no drainage Neurological: Negative Psychological: Normal All Other Systems Reviewed And Are Negative: Yes Physical Exam Triage Information Reviewed: Yes Vital Signs On Initial Exam: Initial Vitals Temp Pulse Resp BP Pulse Ox 98.6 F 89 18 122/84 98 03/16/17 12:19 03/16/17 12:19 03/16/17 12:19 03/16/17 12:19 03/16/17 12:19 Vital Signs Reviewed: Yes Appearance: Positive: Well-Appearing, No Pain Distress, Well-Nourished Skin: Positive: Warm, Skin Color Reflects Adequate Perfusion, Dry Head/Face: Positive: Normal Head/Face Inspection Eyes: Positive: Normal, EOMI, DENISSE ENT: Positive: Normal ENT inspection Neck: Positive: Supple, Nontender Respiratory/Lung Sounds: Positive: Clear to Auscultation, Breath Sounds Present Cardiovascular: Positive: RRR Abdomen Description: Positive: Nontender, Soft Bowel Sounds: Positive: Present Male Genital Exam: Positive: erythema - Scrotum, other - Penis normal. Swelling on the scrotum near the left base of the penile shaft - firm area with no leblanc. There appears to have been drainage there. Musculoskeletal: Positive: Normal, Strength/ROM Intact Neurological: Positive: Normal, Sensory/Motor Intact, Alert, Oriented to Person Place, Time Psychiatric: Positive: Normal, Affect/Mood Appropriate - Heidi Coma Scale Coma Scale Total: 15 Diagnostics - Vital Signs Vital Signs Temp Pulse Resp BP Pulse Ox 03/16/17 13:17 99.8 F 84 16 118/78 95 03/16/17 12:19 98.6 F 89 18 122/84 98 - Laboratory Lab Results: Lab Results 03/16/17 03/16/17 03/16/17 Range/Units 14:15 15:47 15:47 WBC 8.7 (3.5-10.8) 10^3/ul RBC 4.29 (4.0-5.4) 10^6/ul Hgb 13.0 L (14.0-18.0) g/dl Hct 39 L (42-52) % MCV 91 (80-94) fL MCH 30 (27-31) pg MCHC 33 (31-36) g/dl RDW 14 (10.5-15) % Plt Count 236 (150-450) 10^3/ul MPV 8 (7.4-10.4) um3 Neut % (Auto) 61.9 (38-83) % Lymph % (Auto) 23.2 L (25-47) % [place] % (Auto) 13.0 H (1-9) % Eos % (Auto) 1.5 (0-6) % Baso % (Auto) 0.4 (0-2) % Absolute Neuts (auto) 5.4 (1.5-7.7) 10^3/ul Absolute Lymphs (auto) 2.0 (1.0-4.8) 10^3/ul Absolute Monos (auto) 1.1 H (0-0.8) 10^3/ul Absolute Eos (auto) 0.1 (0-0.6) 10^3/ul Absolute Basos (auto) 0 (0-0.2) 10^3/ul Absolute Nucleated RBC 0.01 10^3/ul Nucleated RBC % 0.2 Sodium 138 (133-145) mmol/L Potassium 3.9 (3.5-5.0) mmol/L Chloride 103 (101-111) mmol/L Carbon Dioxide 27 (22-32) mmol/L Anion Gap 8 (2-11) mmol/L BUN 10 (6-24) mg/dL Creatinine 0.71 (0.67-1.17) mg/dL Est GFR ( Amer) 147.1 (>60) Est GFR (Non-Af Amer) 114.4 (>60) BUN/Creatinine Ratio 14.1 (8-20) Glucose 98 (70-100) mg/dL Lactic Acid (0.5-2.0) mmol/L Calcium 9.0 (8.6-10.3) mg/dL Total Bilirubin 0.40 (0.2-1.0) mg/dL AST 29 (13-39) U/L ALT 31 (7-52) U/L Alkaline Phosphatase 50 (34-104) U/L C-Reactive Protein 85.58 H (< 5.00) mg/L Total Protein 7.1 (6.4-8.9) g/dL Albumin 3.9 (3.2-5.2) g/dL Globulin 3.2 (2-4) g/dL Albumin/Globulin Ratio 1.2 (1-3) Urine Color Straw Urine Appearance Clear Urine pH 6.0 (5-9) Ur Specific [place] 1.009 L (1.010-1.030) Urine Protein Negative (Negative) Urine Ketones Negative (Negative) Urine Blood 1+ H (Negative) Urine Nitrate Negative (Negative) Urine Bilirubin Negative (Negative) Urine Urobilinogen Negative (Negative) Ur Leukocyte Esterase Negative (Negative) Urine WBC (Auto) Absent (Absent) Urine RBC (Auto) Trace(0-2/hpf) (Absent) Urine Bacteria Absent (Absent) Urine Glucose Negative (Negative) 03/16/17 Range/Units 15:47 WBC (3.5-10.8) 10^3/ul RBC (4.0-5.4) 10^6/ul Hgb (14.0-18.0) g/dl Hct (42-52) % MCV (80-94) fL MCH (27-31) pg MCHC (31-36) g/dl RDW (10.5-15) % Plt Count (150-450) 10^3/ul MPV (7.4-10.4) um3 Neut % (Auto) (38-83) % Lymph % (Auto) (25-47) % [place] % (Auto) (1-9) % Eos % (Auto) (0-6) % Baso % (Auto) (0-2) % Absolute Neuts (auto) (1.5-7.7) 10^3/ul Absolute Lymphs (auto) (1.0-4.8) 10^3/ul Absolute Monos (auto) (0-0.8) 10^3/ul Absolute Eos (auto) (0-0.6) 10^3/ul Absolute Basos (auto) (0-0.2) 10^3/ul Absolute Nucleated RBC 10^3/ul Nucleated RBC % Sodium (133-145) mmol/L Potassium (3.5-5.0) mmol/L Chloride (101-111) mmol/L Carbon Dioxide (22-32) mmol/L Anion Gap (2-11) mmol/L BUN (6-24) mg/dL Creatinine (0.67-1.17) mg/dL Est GFR ( Amer) (>60) Est GFR (Non-Af Amer) (>60) BUN/Creatinine Ratio (8-20) Glucose (70-100) mg/dL Lactic Acid 0.7 (0.5-2.0) mmol/L Calcium (8.6-10.3) mg/dL Total Bilirubin (0.2-1.0) mg/dL AST (13-39) U/L ALT (7-52) U/L Alkaline Phosphatase (34-104) U/L C-Reactive Protein (< 5.00) mg/L Total Protein (6.4-8.9) g/dL Albumin (3.2-5.2) g/dL Globulin (2-4) g/dL Albumin/Globulin Ratio (1-3) Urine Color Urine Appearance Urine pH (5-9) Ur Specific [place] (1.010-1.030) Urine Protein (Negative) Urine Ketones (Negative) Urine Blood (Negative) Urine Nitrate (Negative) Urine Bilirubin (Negative) Urine Urobilinogen (Negative) Ur Leukocyte Esterase (Negative) Urine WBC (Auto) (Absent) Urine RBC (Auto) (Absent) Urine Bacteria (Absent) Urine Glucose (Negative) Result Diagrams: 03/16/17 15:47 03/16/17 15:47 Lab Statement: Any lab studies that have been ordered have been reviewed, and results considered in the medical decision making process. - Ultrasound No standard instances Ultrasound Interpretation: Positive (See Comments) - SOFT TISSUE US - The constellation of findings is consistent with cellulitis. No loculated abscess collection evident. Ultrasound Interpretation Completed By: Radiologist Course/Dx - Course Course Of Treatment: NO CRITICAL CARE TIME. HAS BEEN ON PO ABX FOR 4 DAYS AND CONDITION WORSENING. ADMIT HOSPITALIST STABLE. - Diagnoses Provider Diagnoses: Cellulitis of scrotum Discharge - Discharge Plan Condition: Stable Disposition: ADMITTED TO [facility] documentation as recorded by the Diane ross Edward accurately reflects the service I personally performed and the decisions made by me, Gustavo Harper MD.
[2017-03-16] MEDS: Naproxen TAB* 250 MG PO PRN (19:40)
[2017-03-16] MEDS: Atorvastatin* 20 MG TAB PO SCH (22:05)
[2017-03-16] MEDS: PTO: Balsalazide (NF) 750 MG CAP PO SCH (22:05)
[2017-03-16] MEDS: CMCS: Melatonin (NF) 3 MG TAB PO SCH (22:05)
[2017-03-16] MEDS: Amitriptyline TAB* 25 MG PO SCH (22:06)
[2017-03-16] MEDS: CMCS: OMEGA-3 FATTY ACIDS (NF) 1,000 MG CAP PO SCH (22:21)
[2017-03-17] MEDS: Clindamycin 600 MG IVPREMIX(* 600 MG/50 ML SDV IV SCH ×3 (01:49→16:34)
--- NOTE | 2017-03-17 02:16 | HP ---
MEDICINE HISTORY AND PHYSICAL: DATE OF ADMISSION: 03/16/17 PROVIDER: Terrance Lee NP ATTENDING PHYSICIAN: Dr. Durga Castaneda * (dictated by Terrance Lee NP). PRIMARY CARE PHYSICIAN: Dr. Galen Concepcion. CHIEF COMPLAINT: Swollen scrotum and abscess on penis. HISTORY OF PRESENT ILLNESS: Mr. Ruano is a 56-year-old male patient who presented to the ER today with concern for progressive swelling and redness to the scrotum and penis. The patient reports that on Monday, the , he was not sure what he was looking at, but by Monday he noticed that there was a lesion to the left posterolateral portion of his penis that was getting bigger. The following day, on Monday, he went to urgent care and was seen there. He was encouraged to use warm compresses to the area and started on cephalexin. The patient states that the wound did improve and got smaller. He did notice that there was some drainage oozing that looked somewhat purulent. He noticed, however, he has this penile lesion that is smaller, the scrotum got larger and more swollen mostly on the left side. He also noticed increased redness. He then called Dr. Concepcion's office on Monday, but they told him that he could not be seen until Monday, 03/17. He was concerned and then he called the triage nurse from his insurance company who recommended that he come in to the ER for further evaluation. He denies any fevers, chills, dysuria, penile drainage, or bleeding. He denies any true aggravating factors, but states that it is uncomfortable when he walks , but does not cause any excruciating pain. He has been treating the discomfort with Aleve which has been helpful. He denies any previous history of prostatitis or cellulitis. He denies any previous dermatological issues. In the ER, the patient's evaluation with the blood work which showed no significant elevations of white blood cell count or lactic acidosis; however, the patient does have an elevated CRP of 85. His UA shows 1+ blood, but that is negative for nitrites, leukocyte esterase, or bacteria. He also had an ultrasound performed of the scrotum which showed a constellation of findings consistent with cellulitis. No loculated abscess collection evident. A CT of the pelvis is pending. Given the patient's failed outpatient treatment, Hospital Medicine was consulted for admission. PAST MEDICAL HISTORY: Includes: 1. Hypertension. 2. Hyperlipidemia. 3. Ulcerative colitis. 4. Cyclical vomiting. HOME MEDICATIONS: 1. Aspirin 81 mg daily. 2. Lovaza 1 capsule b.i.d. 3. Lotrel 5/10 mg 1 capsule daily. 4. Amitriptyline 25 mg at bedtime. 5. Balsalazide 1500 mg b.i.d. 6. Simvastatin 40 mg at bedtime. 7. Keflex 500 mg t.i.d. ALLERGIES: No known drug allergies. FAMILY HISTORY: He reports a father with heart disease and mother with breast cancer, a brother with a history of brain aneurysm, another brother who from CVA. SOCIAL HISTORY: He denies tobacco, alcohol, or illicit drug use. 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 He is . His , Valeria Alonso, is his surrogate decision maker. REVIEW OF SYSTEMS: As per HPI. A 12-point review of systems was completed. All others not mentioned are negative. PHYSICAL EXAMINATION GENERAL: Mr. Ruano is a 56-year-old male who is lying in the ED stretcher in no acute distress. VITAL SIGNS: Temperature 99.8, heart rate 80, respiratory rate 16, blood pressure 116/74, and O2 saturation 97% on room air. HEENT: Head is atraumatic, normocephalic. Face is symmetrical. Pupils are equal and reactive to light. Extraocular movements are intact. Oral mucosa is moist with no oropharyngeal erythema or exudates. NECK: Supple. No lymphadenopathy appreciated. RESPIRATORY: Lungs clear to auscultation. There is no accessory muscle use. CARDIAC: S1, S2 heart sounds. Regular rate and rhythm. No murmurs, rubs, or gallops. There is no peripheral edema. Distal pulses are 2+ bilaterally. ABDOMEN: Soft, nontender, nondistended. Bowel sounds present times all 4 quadrants. MUSCULOSKELETAL: There is no clubbing or cyanosis. The patient has full range of motion. SKIN: There is hyperemia and focal edema to the scrotum. The generalized edema and erythema that was noted to the scrotum (mostly to the dorsal surface) is not seen on the posterior aspect of the scrotum. No penile drainage or bleeding noted. There is a small area of induration on the left aspect of the scrotum, but no drainage is produced with palpation. There are no penile lesions, ulcerations, or bumps. The patient is circumcised. NEUROLOGIC: The patient moves all extremities. Sensation is intact to light touch. He is alert and oriented x3. Cranial nerves II through XII are grossly intact. LABORATORY DATA AND DIAGNOSTIC STUDIES: CBC: WBC 8.7, hemoglobin 13.0, hematocrit 39, platelet count 236. CMP: Sodium 138, potassium 3.9, chloride 103, carbon dioxide 27, BUN 10, creatinine 0.71, glucose 98, lactic acid 0.7, calcium 9.0. Total bilirubin 0.4, AST 29, ALT 31, alk phos 50. CRP 85.58. Albumin 3.9. UA shows 1+ blood. Ultrasound of the soft tissues as previously mentioned. CT of the pelvis is pending. Old medical records were reviewed. ASSESSMENT AND PLAN: Mr. Ruano is a 56-year-old male who presents today with concern for failed outpatient treatment for penile and scrotal cellulitis. He will be admitted as an observation patient to the medicine floor. Plans are as follows: 1. Scrotal cellulitis. We will continue the clindamycin that the patient has received in the ER. Blood cultures have been drawn and are pending. We will recheck labs in the morning and repeat his CBC, BMP, and his CRP. Additionally , we will check a CT abdomen and pelvis in order to rule out Benji's gangrene and necrotizing fasciitis. Continue to closely monitor. The patient has no significant dysuria or drainage concerning for prostatitis or other sexually transmitted diseases. At this time, we will continue his clindamycin and closely monitor. 2. History of hypertension. Continue home Lotrel. 3. Hyperlipidemia. Continue simvastatin. 4. History of ulcerative colitis. Continue balsalazide. 5. History of low back pain. Continue p.r.n. Tylenol. 6. History of cyclical vomiting. Continue amitriptyline. 7. Fluids, electrolytes, and nutrition: The patient is ordered a heart healthy diet. 8. DVT prophylaxis: He is ordered SCDs and will be encouraged to ambulate for a DVT risk assessment of 1. 9. Code status: He is a full code. 10. Disposition: Admit to Medicine. Discharge to home when medically stable. TIME SPENT: Time spent on this admission was approximately 60 minutes, more than half of the time was spent [id number] with the patient obtaining history and physical, performing physical examination, and reviewing the plan of care. Plan of care was also reviewed with my attending, Dr. Castaneda, who is in agreement. TERRANCE LEE, HATCHERY HELPER [id number]/[facility]PS #: [id number] OLMAN
[2017-03-17 05:56] LABS: Hematocrit 38 % (42-52); Hemoglobin 12.7 g/dl (14.0-18.0); Mean Corpuscular HGB Conc 33 g/dl (31-36); Mean Corpuscular Hemoglobin 30 pg (27-31); Mean Corpuscular Volume 91 fL (80-94); Mean Platelet Volume 8 um3 (7.4-10.4); Red Blood Count 4.19 10^6/ul (4.0-5.4); Red Cell Distribution Width 13 % (10.5-15); White Blood Count 7.3 10^3/ul (3.5-10.8)
[2017-03-17] MEDS: Naproxen TAB* 250 MG PO PRN (06:02)
[2017-03-17 06:18] LABS: BUN/Creatinine Ratio 15.5 (8-20); C Reactive Protein 78.46 mg/L (< 5.00); Calcium 8.7 mg/dL (8.6-10.3); EGFR African American 147.1 (>60); EGFR Non-African American 114.4 (>60); Potassium 3.8 mmol/L (3.5-5.0)
[2017-03-17] MEDS: CMCS: OMEGA-3 FATTY ACIDS (NF) 1,000 MG CAP PO SCH ×2 (08:54→20:14)
[2017-03-17] MEDS: Lisinopril TAB* 10 MG PO SCH (08:54)
[2017-03-17] MEDS: Aspirin Low Dose CHEW TAB* 81 MG PO SCH (08:55)
[2017-03-17] MEDS: amLODIPine TAB* 5 MG PO SCH (08:55)
[2017-03-17] MEDS: PTO: Balsalazide (NF) 750 MG CAP PO SCH ×2 (08:55→20:14)
[2017-03-17] MEDS ORDERED: AMLODIPINE BESYLATE BENAZEPRIL PO SCH (09:00)
--- NOTE | 2017-03-17 09:28 | PN ---
Subjective Date of Service: 03/17/17 Interval History: Patient seen and examined at bedside Denies fever/chills, CP, SOB, n/v, dysuria, penile discharge, lesions or significant pain Reports improvement in pain but reports new scaling around previous lesion as well as increased redness Family History: Unchanged from Admission Social History: Unchanged from Admission Past Medical History: Unchanged from Admission Objective Active Medications: Acetaminophen (Tylenol Tab*) 650 mg PO Q4H PRN PRN Reason: FEVER/PAIN Amitriptyline HCl (Elavil Tab*) 25 mg PO BEDTIME [facility] Last Admin: 03/16/17 22:06 Dose: 25 mg Amlodipine Besylate (Norvasc Tab*) 5 mg PO DAILY [facility] Last Admin: 03/17/17 08:55 Dose: 5 mg Aspirin (Aspirin Low Dose Tab*) 81 mg PO DAILY [facility] Last Admin: 03/17/17 08:55 Dose: 81 mg Atorvastatin Calcium (Lipitor*) 20 mg PO BEDTIME [facility] Last Admin: 03/16/17 22:05 Dose: 20 mg Balsalazide (Balsalazide (Nf)) 1,500 mg PO BID [facility] Last Admin: 03/17/17 08:55 Dose: 1,500 mg Fish Oil (Fish Oil (Nf)) 1,000 mg PO BID [facility] PRN Reason: Protocol Last Admin: 03/17/17 08:54 Dose: 1,000 mg Clindamycin HCl/Dextrose (Cleocin 600 Mg Ivpremix(*) Sdv) 600 mg in 50 mls @ 100 mls/hr IV Q8H [facility] Last Admin: 03/17/17 08:56 Dose: 100 mls/hr Lisinopril (Prinivil Tab*) 10 mg PO DAILY [facility] Last Admin: 03/17/17 08:54 Dose: 10 mg Melatonin (Melatonin (Nf)) 3 mg PO BEDTIME [facility] Last Admin: 03/16/17 22:05 Dose: 3 mg Naproxen (Naprosyn Tab*) 500 mg PO Q12H PRN PRN Reason: PAIN Last Admin: 03/17/17 06:02 Dose: 500 mg Ondansetron HCl (Zofran Inj*) 4 mg IV Q6H PRN PRN Reason: NAUSEA/VOMITING Vital Signs 03/16/17 03/16/17 03/16/17 17:30 18:00 18:15 Temperature Pulse Rate 80 81 Respiratory 20 Rate Blood Pressure 116/74 116/74 (mmHg) O2 Sat by Pulse 94 94 Oximetry 03/16/17 03/16/17 03/16/17 18:30 20:00 22:25 Temperature 98.1 F 98.3 F Pulse Rate 73 80 Respiratory 14 20 20 Rate Blood Pressure 126/81 120/75 (mmHg) O2 Sat by Pulse 96 95 Oximetry 03/17/17 07:50 Temperature 98.2 F Pulse Rate 66 Respiratory 16 Rate Blood Pressure 102/60 (mmHg) O2 Sat by Pulse 94 Oximetry Oxygen Devices in Use Now: None Appearance: Middle aged male, lying in bed, NAD Eyes: PERRLA Ears/Nose/Mouth/Throat: Mucous Membranes Moist Neck: NL Appearance and Movements; NL JVP Respiratory: Symmetrical Chest Expansion and Respiratory Effort, Clear to Auscultation Cardiovascular: NL Sounds; No Murmurs; No JVD, RRR Abdominal: NL Sounds; No Tenderness; No Distention Extremities: No Edema, No Clubbing, Cyanosis Skin: - - scrotal edema and erythema Neurological: Alert and Oriented x 3 Lines/Tubes/Other Access: Clean, Dry and Intact Peripheral IV Result Diagrams: 03/17/17 05:27 03/17/17 05:27 Additional Lab and Data: Lab Results 03/16/17 03/16/17 03/16/17 Range/Units 14:15 15:47 15:47 WBC 8.7 (3.5-10.8) 10^3/ul RBC 4.29 (4.0-5.4) 10^6/ul Hgb 13.0 L (14.0-18.0) g/dl Hct 39 L (42-52) % MCV 91 (80-94) fL MCH 30 (27-31) pg MCHC 33 (31-36) g/dl RDW 14 (10.5-15) % Plt Count 236 (150-450) 10^3/ul MPV 8 (7.4-10.4) um3 Neut % (Auto) 61.9 (38-83) % Lymph % (Auto) 23.2 L (25-47) % Sam[place] % (Auto) 13.0 H (1-9) % Eos % (Auto) 1.5 (0-6) % Baso % (Auto) 0.4 (0-2) % Absolute Neuts (auto) 5.4 (1.5-7.7) 10^3/ul Absolute Lymphs (auto) 2.0 (1.0-4.8) 10^3/ul Absolute Monos (auto) 1.1 H (0-0.8) 10^3/ul Absolute Eos (auto) 0.1 (0-0.6) 10^3/ul Absolute Basos (auto) 0 (0-0.2) 10^3/ul Absolute Nucleated RBC 0.01 10^3/ul Nucleated RBC % 0.2 Sodium 138 (133-145) mmol/L Potassium 3.9 (3.5-5.0) mmol/L Chloride 103 (101-111) mmol/L Carbon Dioxide 27 (22-32) mmol/L Anion Gap 8 (2-11) mmol/L BUN 10 (6-24) mg/dL Creatinine 0.71 (0.67-1.17) mg/dL Est GFR ( Amer) 147.1 (>60) Est GFR (Non-Af Amer) 114.4 (>60) BUN/Creatinine Ratio 14.1 (8-20) Glucose 98 (70-100) mg/dL Lactic Acid (0.5-2.0) mmol/L Calcium 9.0 (8.6-10.3) mg/dL Total Bilirubin 0.40 (0.2-1.0) mg/dL AST 29 (13-39) U/L ALT 31 (7-52) U/L Alkaline Phosphatase 50 (34-104) U/L C-Reactive Protein 85.58 H (< 5.00) mg/L Total Protein 7.1 (6.4-8.9) g/dL Albumin 3.9 (3.2-5.2) g/dL Globulin 3.2 (2-4) g/dL Albumin/Globulin Ratio 1.2 (1-3) Urine Color Straw Urine Appearance Clear Urine pH 6.0 (5-9) Ur Specific [place] 1.009 L (1.010-1.030) Urine Protein Negative (Negative) Urine Ketones Negative (Negative) Urine Blood 1+ H (Negative) Urine Nitrate Negative (Negative) Urine Bilirubin Negative (Negative) Urine Urobilinogen Negative (Negative) Ur Leukocyte Esterase Negative (Negative) Urine WBC (Auto) Absent (Absent) Urine RBC (Auto) Trace(0-2/hpf) (Absent) Urine Bacteria Absent (Absent) Urine Glucose Negative (Negative) 03/16/17 Range/Units 15:47 WBC (3.5-10.8) 10^3/ul RBC (4.0-5.4) 10^6/ul Hgb (14.0-18.0) g/dl Hct (42-52) % MCV (80-94) fL MCH (27-31) pg MCHC (31-36) g/dl RDW (10.5-15) % Plt Count (150-450) 10^3/ul MPV (7.4-10.4) um3 Neut % (Auto) (38-83) % Lymph % (Auto) (25-47) % Sampson % (Auto) (1-9) % Eos % (Auto) (0-6) % Baso % (Auto) (0-2) % Absolute Neuts (auto) (1.5-7.7) 10^3/ul Absolute Lymphs (auto) (1.0-4.8) 10^3/ul Absolute Monos (auto) (0-0.8) 10^3/ul Absolute Eos (auto) (0-0.6) 10^3/ul Absolute Basos (auto) (0-0.2) 10^3/ul Absolute Nucleated RBC 10^3/ul Nucleated RBC % Sodium (133-145) mmol/L Potassium (3.5-5.0) mmol/L Chloride (101-111) mmol/L Carbon Dioxide (22-32) mmol/L Anion Gap (2-11) mmol/L BUN (6-24) mg/dL Creatinine (0.67-1.17) mg/dL Est GFR ( Amer) (>60) Est GFR (Non-Af Amer) (>60) BUN/Creatinine Ratio (8-20) Glucose (70-100) mg/dL Lactic Acid 0.7 (0.5-2.0) mmol/L Calcium (8.6-10.3) mg/dL Total Bilirubin (0.2-1.0) mg/dL AST (13-39) U/L ALT (7-52) U/L Alkaline Phosphatase (34-104) U/L C-Reactive Protein (< 5.00) mg/L Total Protein (6.4-8.9) g/dL Albumin (3.2-5.2) g/dL Globulin (2-4) g/dL Albumin/Globulin Ratio (1-3) Urine Color Urine Appearance Urine pH (5-9) Ur Specific [place] (1.010-1.030) Urine Protein (Negative) Urine Ketones (Negative) Urine Blood (Negative) Urine Nitrate (Negative) Urine Bilirubin (Negative) Urine Urobilinogen (Negative) Ur Leukocyte Esterase (Negative) Urine WBC (Auto) (Absent) Urine RBC (Auto) (Absent) Urine Bacteria (Absent) Urine Glucose (Negative) Assess/Plan/Problems-Billing Assessment: Mr. Ruano is a 56 yo male with a PMH of HTN, HLD, ulcerative colitis, and cyclical vomiting who presented to the ED on 03/16 with concern for scrotal cellulitis. - Patient Problems (1) Cellulitis of scrotum Code(s): N49.2 - INFLAMMATORY DISORDERS OF SCROTUM Comment: Mildly improved. Patient started on cephalexin as outpatient with little improvement Continue IV clindamycin CT and US were negative for abscess or gas Appreciate ID consult (2) HTN (hypertension) Code(s): I10 - ESSENTIAL (PRIMARY) HYPERTENSION Comment: Normotensive Continue amlodipine and lisinopril (therapeutic sub for Lotrel) (3) HLD (hyperlipidemia) Code(s): E78.5 - HYPERLIPIDEMIA, UNSPECIFIED Comment: Continue atorvastatin. (4) Ulcerative colitis Code(s): K51.90 - ULCERATIVE COLITIS, UNSPECIFIED, WITHOUT COMPLICATIONS Comment: Continue balsalazide (may use own med). (5) Cyclical vomiting syndrome Comment: Stable Continue home Co-enzyme Q10 and amitryptiline. (6) DVT prophylaxis Comment: SCDs Encourage early ambulation Status and Disposition: OBV admit. Anticipate dc in 1-2 days.
[2017-03-17] MEDS: cefTRIAXone VIAL(*) 1,000 MG in NS 0.9% 50 ML* 50 ML IVPB SCH (10:45)
[2017-03-17 10:52] LABS: Syphilis Index < 0.1 Index
--- NOTE | 2017-03-17 11:37 | CONS ---
DATE OF CONSULTATION: 03/17/2017. REQUESTING PROVIDER: Pam Prater NP. CONSULTING SERVICE: Infectious Disease. REASON FOR CONSULTATION: Scrotal cellulitis. IMPRESSION: 1. Scrotal cellulitis predominantly on the left. It started as an area of induration at the base of his penis. He denies any recent new sexual partners or recent sex. It is most likely skin [place], but gram negatives are also a consideration in that region. Could this have started as a sexually transmitted infection, likely a primary herpes ulcer or syphilitic chancre, it is possible although so far his description of the initial lesion seemed atypical for above, although it is still possible. 2. Ulcerative colitis. 3. Cyclical vomiting syndrome. RECOMMENDATIONS: Continue Clindamycin 600 mg IV every eight hours as you are doing and we will add Ceftriaxone 1 gm a day. The CRP on to his blood sample from yesterday, so we will having something to compare it to as these types of cellulitis are often slow to resolve. It would be helpful to have another objective measure if he is not having significant improvement. I will also ask him to elevate his scrotum a bit more with either a pillow or a sling. He did have a CT abdomen and pelvis that did not show any testicular lesion. An ultrasound also did not detect an abscess. HISTORY OF PRESENT ILLNESS: This is a 56-year-old man with ulcerative colitis admitted with scrotal pain and swelling. The end of last week he developed an area of swelling at the base of the left side of his penis. He had no proceeding injury or trauma that he could recall and no recent sex. It seemed to swell. There was no pustule that he could see. There was just soft tissue swelling. He was seen in the [facility] and prescribed Keflex. He started taking it. The redness starting spreading into the left scrotum. He had some occasional drainage of brownish clear fluid from the area of initial scrotal swelling. Nothing that caused any relief as far as overall swelling or mild pain he was having. He had no fevers, chills or sweats. Because of worsening swelling and redness in the left scrotum, he came to the ER and was started on Clindamycin. He had the CT and ultrasound as noted above, both showed no abscess. He has been afebrile here and he feels about the same today with left scrotal redness, swelling and mild discomfort that improves with Naproxen. It is a little bit worse when he gets up and moves around. He has never had anything like this before. PAST MEDICAL HISTORY: 1. Hypertension. 2. Hyperlipidemia. 3. Ulcerative colitis. 4. Cyclical vomiting syndrome. 5. Depression. MEDICATIONS: Tylenol, Amitriptyline at bedtime, Lipitor, Balsalazide, Clindamycin 600 mg every 8 hours, Lisinopril, Melatonin, Zofran, Amlodipine. ALLERGIES: No known drug allergies. FAMILY HISTORY: Father with coronary artery disease, mother with breast cancer. 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 He lives with his . No other sexual partners. REVIEW OF SYSTEMS: All negative to full review of systems, except as noted above. PHYSICAL EXAM: General: He is awake, not in distress. Vital Signs: Temperature 37, heart rate 66, respiratory rate 16, blood pressure 100/60, O2 sat 94 percent on room air. HEENT: There is no conjunctival hemorrhage. No oropharyngeal lesions. Neck: Supple without nuchal rigidity. Lymph nodes: There is no inguinal lymphadenopathy. Heart: Regular rate and rhythm without murmurs, rubs or gallops. Lungs: Clear to auscultation bilaterally. Abdomen: Soft, nontender, nondistended without hepatosplenomegaly. Skin: There is no rash or splinter hemorrhages. Musculoskeletal: There is no spine tenderness to palpation. Genitourinary: There is no penile erythema. There is left scrotal diffuse edema. Erythema with minimal warmth. There is no pustule or ulceration. There is no testicular tenderness or mass. LAB DATA: White blood cell count 7, hemoglobin 12, platelets 214, creatinine 0.7, CRP 80 today. Please see impressions and recommendations as outlined above which I have discussed with Pam Prater NP. Thank you for asking me to see Mr. Ruano in consultation. [id number]/[facility] #: [id number] OLMAN
[2017-03-17] MEDS ORDERED: PROBIOTIC PO SCH (13:15)
[2017-03-17] MEDS: CO Q10 PO SCH (15:40)
[2017-03-17] MEDS: CARNITINE PO SCH (15:41)
[2017-03-17] MEDS: Lactobacillus Acidophilu (GG)* 1 CAP CAP PO SCH (16:34)
[2017-03-17] MEDS: Amitriptyline TAB* 25 MG PO SCH (20:14)
[2017-03-17] MEDS: Atorvastatin* 20 MG TAB PO SCH (20:14)
[2017-03-17] MEDS: CMCS: Melatonin (NF) 3 MG TAB PO SCH (20:14)
[2017-03-17] MEDS ORDERED: PTO: Balsalazide (NF) 750 MG CAP PO SCH (22:00)
[2017-03-18] MEDS: Clindamycin 600 MG IVPREMIX(* 600 MG/50 ML SDV IV SCH ×2 (00:21→08:45)
[2017-03-18 07:25] LABS: BUN/Creatinine Ratio 13.8 (8-20); C Reactive Protein 54.32 mg/L (< 5.00); Calcium 9.1 mg/dL (8.6-10.3); EGFR African American 128.1 (>60); EGFR Non-African American 99.6 (>60); Potassium 4.1 mmol/L (3.5-5.0)
[2017-03-18 08:11] VITALS: BP 100/62
[2017-03-18] MEDS: amLODIPine TAB* 5 MG PO SCH (08:49)
[2017-03-18] MEDS: CMCS: OMEGA-3 FATTY ACIDS (NF) 1,000 MG CAP PO SCH (08:49)
[2017-03-18] MEDS: Aspirin Low Dose CHEW TAB* 81 MG PO SCH (08:50)
[2017-03-18] MEDS: Lisinopril TAB* 10 MG PO SCH (08:50)
[2017-03-18] MEDS: Lactobacillus Acidophilu (GG)* 1 CAP CAP PO SCH (08:50)
[2017-03-18] MEDS: CARNITINE PO SCH (08:58)
[2017-03-18] MEDS: CO Q10 PO SCH (08:58)
[2017-03-18] MEDS ORDERED: PTO: Balsalazide (NF) 750 MG CAP PO SCH (09:00)
--- NOTE | 2017-03-18 09:26 | PN ---
Subjective Date of Service: 03/18/17 Interval History: Mr. Ruano states that he is feeling better overall today. He has less pain, redness, and swelling to his scrotum. He denies other complaint including chest pain, SOB, nausea, or abdominal pain. Family History: Unchanged from Admission Social History: Unchanged from Admission Past Medical History: Unchanged from Admission Objective Active Medications: Acetaminophen (Tylenol Tab*) 650 mg PO Q4H PRN Amitriptyline HCl (Elavil Tab*) 25 mg PO BEDTIME HASEEB Amlodipine Besylate (Norvasc Tab*) 5 mg PO DAILY HASEEB Aspirin (Aspirin Low Dose Tab*) 81 mg PO DAILY HASEEB Atorvastatin Calcium (Lipitor*) 20 mg PO BEDTIME HASEEB Balsalazide (Balsalazide (Nf)) 1,500 mg PO 0900,2100 HASEEB Fish Oil (Fish Oil (Nf)) 1,000 mg PO BID HASEEB Clindamycin HCl/Dextrose (Cleocin 600 Mg Ivpremix(*) Sdv) 600 mg in 50 mls @ 100 mls/hr IV Q8H HASEEB Ceftriaxone Sodium 1,000 mg/ (Sodium Chloride) 50 mls @ 200 mls/hr IVPB Q24H HASEEB Lactobacillus Rhamnosus (Culturelle*) 1 cap PO DAILY HASEEB Lisinopril (Prinivil Tab*) 10 mg PO DAILY HASEEB Melatonin (Melatonin (Nf)) 3 mg PO BEDTIME HASEEB Naproxen (Naprosyn Tab*) 500 mg PO Q12H PRN Non-Formulary Medication (Co Q-10) 1 tab PO DAILY HASEEB Non-Formulary Medication (L-Carnitine) 1 tab PO DAILY HASEEB Ondansetron HCl (Zofran Inj*) 4 mg IV Q6H PRN Vital Signs 03/17/17 03/17/17 03/17/17 16:35 19:34 20:00 Temperature 98.0 F 98.1 F Pulse Rate 77 78 Respiratory 16 20 20 Rate Blood Pressure 123/74 116/64 (mmHg) O2 Sat by Pulse 96 96 Oximetry 03/17/17 03/18/17 03/18/17 23:17 04:29 07:53 Temperature 98.0 F 97.7 F 98.0 F Pulse Rate 72 66 62 Respiratory 16 16 16 Rate Blood Pressure 98/58 94/60 100/62 (mmHg) O2 Sat by Pulse 94 92 93 Oximetry Oxygen Devices in Use Now: None Appearance: Male sitting up in bed in NAD Eyes: No Scleral Icterus Ears/Nose/Mouth/Throat: Mucous Membranes Moist Neck: Trachea Midline Respiratory: Symmetrical Chest Expansion and Respiratory Effort, Clear to Auscultation Cardiovascular: NL Sounds; No Murmurs; No JVD, No Edema Abdominal: NL Sounds; No Tenderness; No Distention Lymphatic: No Cervical Adenopathy Extremities: No Edema Skin: - - Minimal swelling and no erythema to scrotum. Small area of abrasion with induration noted to left side of scrotum. No drainage. Neurological: Alert and Oriented x 3, NL Muscle Strength and Tone Result Diagrams: 03/17/17 05:27 03/18/17 06:33 Additional Lab and Data: Lab Results 03/16/17 03/16/17 03/16/17 Range/Units 14:15 15:47 15:47 WBC 8.7 (3.5-10.8) 10^3/ul RBC 4.29 (4.0-5.4) 10^6/ul Hgb 13.0 L (14.0-18.0) g/dl Hct 39 L (42-52) % MCV 91 (80-94) fL MCH 30 (27-31) pg MCHC 33 (31-36) g/dl RDW 14 (10.5-15) % Plt Count 236 (150-450) 10^3/ul MPV 8 (7.4-10.4) um3 Neut % (Auto) 61.9 (38-83) % Lymph % (Auto) 23.2 L (25-47) % Harris % (Auto) 13.0 H (1-9) % Eos % (Auto) 1.5 (0-6) % Baso % (Auto) 0.4 (0-2) % Absolute Neuts (auto) 5.4 (1.5-7.7) 10^3/ul Absolute Lymphs (auto) 2.0 (1.0-4.8) 10^3/ul Absolute Monos (auto) 1.1 H (0-0.8) 10^3/ul Absolute Eos (auto) 0.1 (0-0.6) 10^3/ul Absolute Basos (auto) 0 (0-0.2) 10^3/ul Absolute Nucleated RBC 0.01 10^3/ul Nucleated RBC % 0.2 Sodium 138 (133-145) mmol/L Potassium 3.9 (3.5-5.0) mmol/L Chloride 103 (101-111) mmol/L Carbon Dioxide 27 (22-32) mmol/L Anion Gap 8 (2-11) mmol/L BUN 10 (6-24) mg/dL Creatinine 0.71 (0.67-1.17) mg/dL Est GFR ( Amer) 147.1 (>60) Est GFR (Non-Af Amer) 114.4 (>60) BUN/Creatinine Ratio 14.1 (8-20) Glucose 98 (70-100) mg/dL Lactic Acid (0.5-2.0) mmol/L Calcium 9.0 (8.6-10.3) mg/dL Total Bilirubin 0.40 (0.2-1.0) mg/dL AST 29 (13-39) U/L ALT 31 (7-52) U/L Alkaline Phosphatase 50 (34-104) U/L C-Reactive Protein 85.58 H (< 5.00) mg/L Total Protein 7.1 (6.4-8.9) g/dL Albumin 3.9 (3.2-5.2) g/dL Globulin 3.2 (2-4) g/dL Albumin/Globulin Ratio 1.2 (1-3) Urine Color Straw Urine Appearance Clear Urine pH 6.0 (5-9) Ur Specific [place] 1.009 L (1.010-1.030) Urine Protein Negative (Negative) Urine Ketones Negative (Negative) Urine Blood 1+ H (Negative) Urine Nitrate Negative (Negative) Urine Bilirubin Negative (Negative) Urine Urobilinogen Negative (Negative) Ur Leukocyte Esterase Negative (Negative) Urine WBC (Auto) Absent (Absent) Urine RBC (Auto) Trace(0-2/hpf) (Absent) Urine Bacteria Absent (Absent) Urine Glucose Negative (Negative) 03/16/17 Range/Units 15:47 WBC (3.5-10.8) 10^3/ul RBC (4.0-5.4) 10^6/ul Hgb (14.0-18.0) g/dl Hct (42-52) % MCV (80-94) fL MCH (27-31) pg MCHC (31-36) g/dl RDW (10.5-15) % Plt Count (150-450) 10^3/ul MPV (7.4-10.4) um3 Neut % (Auto) (38-83) % Lymph % (Auto) (25-47) % Harris % (Auto) (1-9) % Eos % (Auto) (0-6) % Baso % (Auto) (0-2) % Absolute Neuts (auto) (1.5-7.7) 10^3/ul Absolute Lymphs (auto) (1.0-4.8) 10^3/ul Absolute Monos (auto) (0-0.8) 10^3/ul Absolute Eos (auto) (0-0.6) 10^3/ul Absolute Basos (auto) (0-0.2) 10^3/ul Absolute Nucleated RBC 10^3/ul Nucleated RBC % Sodium (133-145) mmol/L Potassium (3.5-5.0) mmol/L Chloride (101-111) mmol/L Carbon Dioxide (22-32) mmol/L Anion Gap (2-11) mmol/L BUN (6-24) mg/dL Creatinine (0.67-1.17) mg/dL Est GFR ( Amer) (>60) Est GFR (Non-Af Amer) (>60) BUN/Creatinine Ratio (8-20) Glucose (70-100) mg/dL Lactic Acid 0.7 (0.5-2.0) mmol/L Calcium (8.6-10.3) mg/dL Total Bilirubin (0.2-1.0) mg/dL AST (13-39) U/L ALT (7-52) U/L Alkaline Phosphatase (34-104) U/L C-Reactive Protein (< 5.00) mg/L Total Protein (6.4-8.9) g/dL Albumin (3.2-5.2) g/dL Globulin (2-4) g/dL Albumin/Globulin Ratio (1-3) Urine Color Urine Appearance Urine pH (5-9) Ur Specific Prospect (1.010-1.030) Urine Protein (Negative) Urine Ketones (Negative) Urine Blood (Negative) Urine Nitrate (Negative) Urine Bilirubin (Negative) Urine Urobilinogen (Negative) Ur Leukocyte Esterase (Negative) Urine WBC (Auto) (Absent) Urine RBC (Auto) (Absent) Urine Bacteria (Absent) Urine Glucose (Negative) Assess/Plan/Problems-Billing Assessment: Mr. Ruano is a 56 yo male with a PMH of HTN, HLD, ulcerative colitis, and cyclical vomiting who presented to the ED on 03/16 with concern for scrotal cellulitis. - Patient Problems (1) Cellulitis of scrotum Comment: - Much improved today. - CT and US were negative for abscess or air. - Appreciate ID consult. Continue clindamycin and switch to vantin for discharge. Patient started on cephalexin as outpatient with little improvement. (2) HTN (hypertension) Comment: - BP well controlled. - Continue amlodipine and lisinopril (therapeutic sub for benazepril). (3) Cyclical vomiting syndrome Comment: - Asymptomatic. - Continue home Co-enzyme Q10 and amitryptiline. (4) Ulcerative colitis Comment: - Asymptomatic. - Continue balsalazide (may use own med). (5) HLD (hyperlipidemia) Comment: - Total cholesterol > 200. - Continue atorvastatin. (6) DVT prophylaxis Comment: - SCDs. (7) Full code status Status and Disposition: Switch to inpatient with > 2 day LOS. Anticipate discharge to home when medically stable.
[2017-03-18] MEDS: cefTRIAXone VIAL(*) 1,000 MG in NS 0.9% 50 ML* 50 ML IVPB SCH (10:46)
--- NOTE | 2017-03-19 02:39 | DS ---
CC: Galen Concepcion MD * [facility] MEDICINE DISCHARGE SUMMARY: DATE OF ADMISSION: 03/16/17 DATE OF DISCHARGE: 03/18/17 ATTENDING PHYSICIAN: Luis Youngblood MD * (dictation provided by Cecilia Jurado NP) PRIMARY CARE PHYSICIAN: Galen Concepcion MD PRIMARY DIAGNOSIS: Scrotal cellulitis. SECONDARY DIAGNOSES: 1. Hypertension. 2. Hyperlipidemia. 3. Ulcerative colitis. 4. Cyclical vomiting. MEDICATIONS AT THE TIME OF DISCHARGE:: 1. Cefuroxime 500 mg p.o. q.12 hours x10 days. 2. Clindamycin 600 mg p.o. t.i.d. x10 days. 3. Aspirin 81 mg daily. 4. Lovaza 1 capsule b.i.d. 5. Lotrel 5/10 mg 1 capsule daily. 6. Amitriptyline 25 mg at bedtime. 7. Balsalazide 1500 mg b.i.d. 8. Simvastatin 40 mg at bedtime. HOSPITAL COURSE: Mr. Ruano is a 56-year-old male with a past medical history of hypertension, hyperlipidemia, and ulcerative colitis who presented to the hospital on 03/16/17, with concerns for scrotal swelling. Please see the dictated H and P from Pam Prater NP, for complete details. In brief, the patient had noted lesion on the side of the penis on Monday03/10/17. This began to look worse with swelling down into the scrotum. He was seen at [facility] on 03/[facility]/17, and started on Keflex. Despite treatment, the area became more red and painful and he ultimately came to the emergency room on 03/16/17. In the ED, his white blood cell count was normal. His CRP was 85.58. He had no fever and a soft tissue ultrasound that showed "the constellation of findings was consistent with cellulitis, no loculated abscess collection evident". He went on for an abdomen and pelvis CT, which showed the following "non-obstructing calculi in the right kidney, diverticulosis without definitive evidence of diverticulitis, scrotal skin thickening consistent with scrotal cellulitis, no evidence of perineal cellulitis is noted." Mr. Ruano was admitted to the hospital. He was started on clindamycin and the following day he was seen in consultation by Dr. Gerardo Preciado from Infectious Diseases. He noted that the cellulitis did start with an area of induration with possible vesicle to the side of the penis. The patient denied any new sexual partners or recent sex. Dr. Preciado suspected that it was likely a skin infection from typical skin [place]. He recommended that in addition to clindamycin that ceftriaxone be added. Mr. Ruano is doing very well today. The swelling, redness, and pain to the scrotum is greatly decreased. He remains afebrile. His white blood cell count is normal. His CRP has continued to fall, today it is 54.32. I spoke with Dr. Preciado, who recommends that the patient could be discharged to home on clindamycin with third generation cephalosporin. Mr. Ruano is medically stable for discharge to home and to follow up with Dr. Concepcion in next 1 to 2 weeks and encouraged him to return to the emergency room should he have any worsening pain, redness, swelling, or fever. DISPOSITION: Home. DIET: Regular. ACTIVITY: As tolerated. FOLLOWUP PLANS: Please follow up with Dr. Concepcion in the next 1 to 2 weeks to ensure and verify resolution of scrotal cellulitis. TIME SPENT: Approximately 60 minutes was spent in the discharge of this patient , more than half the time spent with the patient at the bedside reviewing the events leading up to this hospitalization, performing the physical examination, and reviewing the plan of care. CECILIA JURADO NP [id number]/[facility] #: [id number] OLMAN
== END 2017-03-18 13:15 | disposition home or self-care (01) | DRG 501 ==
LOC: ED 12:11 → MED 17:07 → OBSVTOIN 03-18 11:00
PROVIDERS: ADMIT Internal Medicine; ATTEND Internal Medicine
DX: N49.2 Inflammatory disorders of scrotum (principal); K51.90 Ulcerative colitis, unspecified, without complications; I10 Essential (primary) hypertension; E78.5 Hyperlipidemia, unspecified; N20.0 Calculus of kidney; K57.90 Diverticulosis of intestine, part unspecified, without perforation or abscess without bleeding; G43.A0 Cyclical vomiting, in migraine, not intractable; M54.5 Low back pain; Z79.82 Long term (current) use of aspirin; Z82.49 Family history of ischemic heart disease and other diseases of the circulatory system; Z84.89 Family history of other specified conditions; Z80.3 Family history of malignant neoplasm of breast; Z82.3 Family history of stroke
CPT/HCPCS: 36415; 74176; 80048; 80053; 81003; 81015; 83605; 85025; 86140; 86592; 86703; 87040; 96374; 99284; A9270-GY; G0378; J0696